=== PATIENT | female | born 1970 | race Caucasian/White ===

== ENCOUNTER → 2023-06-15 | Outpatient (CLI) | payer BC, SELFPAY ==
[2023-06-19 12:08] LABS: QNTFERON TB Mitogen Value > 10.00 IU/mL (.); QNTFERON TB Nil Value 0 IU/mL (.); QNTFERON TB1+ Ag Value 0.01 IU/mL (.); QNTFERON TB2+ Ag Value 0 IU/mL (.); QNTIFERON TB Positive Criteria Negative (Negative)
== END | disposition home or self-care (01) ==
LOC: MTLAB 08:25
PROVIDERS: PCP Family Medicine; Referring Provider Physician Assistant Medical; Visit Provider Physician Assistant Medical
DX: L40.8 Other psoriasis (principal); M12.9 Arthropathy, unspecified; Z79.899 Other long term (current) drug therapy
CPT/HCPCS: 36415; 86480